=== PATIENT | female | born 1970 | race Caucasian/White ===

== ENCOUNTER 2024-07-11 16:43 | Emergency (ER) | payer BC ==
[2024-07-11] MEDS ORDERED: Sodium Chloride 0.9% 10 ML Syringe FLUSH PRN (17:18)
[2024-07-11] MEDS: Ondansetron 4 MG/2 ML SDV IVPUSH ONE (17:35)
[2024-07-11] MEDS: Sodium Chloride 0.9% 1,000 ML IV ONE ×3 (17:35→19:28)
[2024-07-11 17:36] LABS: HEMATOCRIT 46.2 % (34.2-48.2); HEMOGLOBIN 15.9 g/dL (11.4-15.5); MEAN CORPUSCULAR HEMOGLOBIN 28.3 pg (23.9-33.9); MEAN CORPUSCULAR HGB CONC 34.3 g/dL (31.9-34.8); MEAN CORPUSCULAR VOLUME 82.4 fL (76.7-100.5); MEAN PLATELET VOLUME 8.9 fL (7.1-12.4); PLATELET COUNT,PLT 291 x10(3)uL (151-488); RED BLOOD CELL COUNT 5.61 x10(6)uL (3.60-5.20); RED CELL DISTRIBUTION WIDTH 12.7 % (12.3-16.5); WHITE BLOOD CELL COUNT,WBC 15.9 x10-3/uL (3.0-10.3)
[2024-07-11 17:38] LABS: BLOOD UREA NITROGEN,BUN 18 mg/dL (7-18); CALCIUM 10.2 mg/dL (8.6-10.2); CARBON DIOXIDE,CO2 23 mmol/L (21-32); CHLORIDE,CL 103 mmol/L (100-110); EST CRCL DRUG DOSING (CG) 58.54 mL/min; ESTIMATED GFR 67 mL/min (>60); GLUCOSE RANDOM 158 mg/dL (80-116); POTASSIUM,K 3.9 mmol/L (3.5-5.3); SODIUM,NA 141 mmol/L (135-145)
[2024-07-11 17:40] LABS: LIPASE 18 U/L (16-77)
[2024-07-11 17:44] LABS: A/G RATIO 1.4; ALANINE AMINOTRANSFERASE,ALT 28 U/L (12-36); ALBUMIN 4.5 g/dL (3.5-5.2); ALKALINE PHOSPHATASE 82 IU/L (56-112); ASPARTATE AMNIOTRANSFERASE,AST 18 IU/L (5-25); BILIRUBIN TOTAL 0.9 mg/dL (0.1-1.3); PROTEIN TOTAL,TP 7.8 g/dL (6.0-8.0)
[2024-07-11 17:46] LABS: BAND PERCENT MAN 1 % (0-6); LYMPHOCYTES PERCENT MAN 15 % (13-37); MONOCYTES PERCENT MAN 6 % (4-12); SEG NEUTROPHILS PERCENT MAN 78 % (46-82)
[2024-07-11 17:48] LABS: C-REACTIVE PROTEIN < 0.50 mg/dL (<0.50); LACTIC ACID 3.2 mmol/L (0.4-2.0)
[2024-07-11] MEDS: LORazepam 2 MG/ML SDV IVPUSH ONE (18:17)
[2024-07-11 19:39] LABS: BILIRUBIN,URINE NEGATIVE (NEGATIVE); GLUCOSE,URINE NORMAL (NORMAL); KETONES,URINE 15 mg/dL (NEGATIVE); LEUKOCYTE ESTERASE,URINE NEGATIVE (NEGATIVE); NITRITE,URINE NEGATIVE (NEGATIVE); OCCULT BLOOD,URINE NEGATIVE (NEGATIVE); PH,URINE 6.5 (5.0-6.5); PROTEIN,URINE NEGATIVE (NEGATIVE); UROBILINOGEN,URINE 4 mg/dL (NEGATIVE)
[2024-07-11 19:40] LABS: APPEARANCE,URINE SLIGHTLY CLOUDY (CLEAR); COLOR,URINE YELLOW (YELLOW)
[2024-07-11] MEDS: Iopamidol 755 Mg/ML 100 ML Bottle IV STA (21:43)
== END 2024-07-11 23:45 | disposition home or self-care (01) ==
LOC: FB.ED 16:43
DX: K52.9 Noninfective gastroenteritis and colitis, unspecified (principal); E86.0 Dehydration
CPT/HCPCS: 36415; 74177; 80053; 81003; 83605; 83690; 85025; 86140; 87230; 96361; 96374; 96375; 99284; J2060; J2405; J7030; Q9967